=== PATIENT | female | born 1985 | race African-American/Black ===

== ENCOUNTER 2020-04-01 23:25 | Emergency (ER) | payer OTHER, MEDICAID ==
[~2020-04-01] VITALS: Ht 152.4 cm; Wt 54.4 kg
[2020-04-01] MEDS ORDERED: NEURONTIN300 MG PO (23:56)
[2020-04-02 00:29] LABS: INFLUENZA A ANTIGEN Negative (Negative); INFLUENZA B ANTIGEN Negative (Negative)
[2020-04-02] MEDS ORDERED: ACETAMINOPHEN-1 EAC2 PO (01:40)
[2020-04-02] MEDS ORDERED: Magic Mouthwash SWISH&SPIT (01:40)
[2020-04-02] MEDS ORDERED: IBUPROFEN 600600 M1 PO (01:40)
[2020-04-02 01:53] VITALS: BP 132/64
== END 2020-04-02 01:53 | disposition home or self-care (01) ==
LOC: M.ERS 23:25
PROVIDERS: Personal Emergency Response Attendant
DX: B34.9 Viral infection, unspecified (principal); Z20.828 Contact with and (suspected) exposure to other viral communicable diseases